=== PATIENT | male | born 1955 | race Two or more races ===

== ENCOUNTER 2018-11-24 16:42 | Emergency (ER) | payer OTHER ==
[~2018-11-24] VITALS: Ht 180.3 cm; Wt 77.1 kg
[~2018-11-24 16:42] MED LIST: CEFADROXIL500 MG PO; ULTRAM50 MG PO
== END 2018-11-24 19:47 | disposition home or self-care (01) ==
LOC: ER 16:42
DX: J06.9 Acute upper respiratory infection, unspecified (principal)

== ENCOUNTER → 2020-12-15 | Outpatient (CLI) | payer OTHER | END | disposition home or self-care (01) | LOC: TOM 10:14 | PROVIDERS: ATTEND Urology | DX: K59.09 Other constipation (principal); R31.29 Other microscopic hematuria; I70.8 Atherosclerosis of other arteries ==

== ENCOUNTER 2021-02-15 21:09 | Emergency (ER) | payer OTHER ==
[~2021-02-15] VITALS: Ht 182.9 cm; Wt 73.9 kg
== END 2021-02-15 22:49 | disposition home or self-care (01) ==
LOC: ER 21:09
DX: R51.9 Headache, unspecified (principal)

== ENCOUNTER 2021-03-09 15:53 | Outpatient (CLI) | payer OTHER | END 2021-03-09 16:02 | disposition home or self-care (01) | LOC: RAD 15:53 | PROVIDERS: ATTEND Otolaryngology Otolaryngology/Facial Plastic Surgery | DX: M62.838 Other muscle spasm (principal) ==

== ENCOUNTER 2021-06-03 00:13 | Emergency (ER) | payer OTHER ==
[~2021-06-03] VITALS: Ht 180.3 cm; Wt 74.8 kg
[2021-06-03] MEDS ORDERED: MEDROLPACK PO (01:06)
[2021-06-03] MEDS ORDERED: NORFLEX100MG PO (01:06)
[2021-06-03] MEDS ORDERED: ACETAMINOPHEN650 M2 PO (01:06)
== END 2021-06-03 03:33 | disposition home or self-care (01) ==
LOC: ER 00:13
DX: M54.2 Cervicalgia (principal); M62.830 Muscle spasm of back

== ENCOUNTER 2021-10-19 08:30 | Outpatient (CLI) | payer OTHER ==
[~2021-10-19 08:30] MED LIST changes: +ACETAMINOPHEN650 M2 PO; +MEDROLPACK PO; +NORFLEX100MG PO
== END 2021-10-19 09:00 | disposition home or self-care (01) ==
LOC: PPH VACUNA 08:30
PROVIDERS: ATTEND Emergency Medicine Pediatric Emergency Medicine
DX: Z23 Encounter for immunization (principal)

== ENCOUNTER → 2022-05-26 | Emergency (ER) | payer OTHER ==
[~2022-05-26] VITALS: Ht 180.3 cm; Wt 77.1 kg
== END | disposition home or self-care (01) ==
LOC: ER 16:49
DX: G57.02 Lesion of sciatic nerve, left lower limb (principal); Z88.6 Allergy status to analgesic agent

== ENCOUNTER 2023-05-07 09:07 | Outpatient (CLI) | payer OTHER | END 2023-05-07 12:24 | disposition home or self-care (01) | LOC: SONOGRAMA 09:07 | PROVIDERS: ATTEND Urology | DX: N20.0 Calculus of kidney (principal) ==

== ENCOUNTER 2023-09-27 15:08 | Emergency (ER) | payer OTHER ==
[~2023-09-27] VITALS: Ht 180.3 cm; Wt 71.7 kg
[2023-09-27] MEDS ORDERED: FINASTERIDE5 MG PO (15:27)
[2023-09-27 17:50] LABS: HEMATOCRIT 43.4 % (39.0-48.0); HEMOGLOBIN 14.6 g/dL (13-16.00); MEAN CELL VOLUME 89.9 fL (80.0-100.00); MEAN CORPUSCULAR HEMOGLOBIN 30.3 pg (27.00-32.0); MEAN CORPUSCULAR HGB CONC 33.7 g/dl (32.0-36.0); PLATELET COUNT 180 K/uL (150-450); RED BLOOD COUNT 4.83 M/uL (4.00-6.00); RED CELL DISTRIBUTION WIDTH 13.3 % (11.5-14.5)
[2023-09-27 18:07] LABS: PH,URINE 5.5 (5.0-8.0); URINE APPEARANCE Clear; URINE BILIRRUBIN Negative (NEGATIVE); URINE BLOOD Small; URINE COLOR Yellow; URINE GLUCOSE Negative (NEGATIVE); URINE LEUKOCYTE Trace; URINE NITRATE Negative; URINE PROTEIN Negative (NEGATIVE); URINE UROBILINOGEN 0.2 E.U./dl
[2023-09-27 18:09] LABS: CALCIUM 9.2 mg/dL (8.5-10.1); CREATININE SERUM 1.27 mg/dL (0.70-1.30); GFR 56.56; POTASSIUM 3.88 mEq/L (3.5-5.1)
[2023-09-27 18:12] LABS: URINE BACTERIA 27.7 uL (0.0-1933); URINE EPITHELIAL CELLS 1.9 uL (0.0-38.8); URINE RBC 15.2 uL (0.0-20.8); URINE WBC 9.6 uL (0.0-23.2)
== END 2023-09-27 18:51 | disposition home or self-care (01) ==
LOC: ER 15:09
PROVIDERS: General Practice
DX: U07.1 COVID-19 (principal)

== ENCOUNTER 2023-12-01 09:24 | Outpatient (CLI) | payer OTHER ==
[~2023-12-01 09:24] MED LIST changes: +FINASTERIDE5 MG PO
== END 2023-12-01 09:35 | disposition home or self-care (01) ==
LOC: RAD 09:24
PROVIDERS: ATTEND Urology
DX: R31.0 Gross hematuria (principal)

== ENCOUNTER 2024-06-21 07:38 | Outpatient (CLI) | payer OTHER | END 2024-06-21 08:06 | disposition home or self-care (01) | LOC: SONOGRAMA 07:38 | PROVIDERS: ATTEND Specialist | DX: N40.1 Benign prostatic hyperplasia with lower urinary tract symptoms (principal); R31.9 Hematuria, unspecified ==

== ENCOUNTER 2024-10-26 15:16 | Emergency (ER) | payer OTHER ==
[~2024-10-26] VITALS: Ht 167.6 cm; Wt 73.5 kg
[2024-10-26 15:20] VITALS: BP 130/63; O2SAT 97
[2024-10-26] MEDS ORDERED: CEFTRIAXONE SODIUM 1,000 MG VIAL IM STA (17:20)
[2024-10-26] MEDS ORDERED: GENTAMICIN SULFATE 0.15 MG/DR DROPS 5ML OP SCH (17:30)
== END 2024-10-26 17:44 | disposition home or self-care (01) ==
LOC: ER 15:19
DX: H10.30 Unspecified acute conjunctivitis, unspecified eye (principal); Z88.6 Allergy status to analgesic agent
CPT/HCPCS: 96372; 99282; J0696